=== PATIENT | female | born 1965 | race Caucasian/White ===

== ENCOUNTER 2019-04-06 06:59 | Day surgery (SDC) | payer BC ==
[~2019-04-06] VITALS: Ht 162.6 cm; Wt 67.1 kg
[~2019-04-06 06:59] MED LIST: D32000TA PO; LIDOCAINE 1% MDV 20ML VIAL SQ PRN
[2019-04-06] MEDS ORDERED: ACETAMINOPHEN 650 MG SUPP PR ONE (07:00)
[2019-04-06] MEDS ORDERED: LR 1,000 ML IV ONE (07:00)
[2019-04-06 07:33] LABS: HEMATOCRIT 42.1 % (36.0-47.0); HEMOGLOBIN 13.9 g/dl (12.0-15.5); MEAN CORPUSCULAR HEMOGLOBIN 30.9 pg (27.0-33.0); MEAN CORPUSCULAR VOLUME 93.6 fl (80.0-96.0); PLATELET COUNT, AUTOMATED 190 10^3/uL (150-450); WHITE BLOOD COUNT 4.7 10^3/uL (4.0-10.0)
[2019-04-06] MEDS ORDERED: OYST1TAB PO (08:04)
[2019-04-06] MEDS ORDERED: ONDANSETRON 4MG/2ML VIAL (J2405) As Ordered ONE (08:07)
[2019-04-06] MEDS ORDERED: LIDOCAINE 2% INJ 100 MG/5 ML SDV (FOR ANES.) As Ordered ONE (08:07)
[2019-04-06] MEDS ORDERED: dexameTHASONE 4 MG/ML 1ML VIAL (J1100) As Ordered ONE (08:07)
[2019-04-06] MEDS ORDERED: PROPOFOL 200 MG/20 ML VIAL As Ordered ONE (08:07)
[2019-04-06] MEDS ORDERED: fentaNYL 100 MCG/2 ML INJECTION (J3010) As Ordered ONE (08:08)
[2019-04-06] MEDS ORDERED: MIDAZOLAM INJ 2 MG/2 ML VIAL (J2250) As Ordered ONE (08:08)
[2019-04-06] MEDS ORDERED: ACETAMINOPHEN 650 MG SUPP As Ordered ONE (09:24)
[2019-04-06] MEDS ORDERED: ePHEDrine SULFATE 25 MG/5 ML(5MG/ML) SYRINGE As Ordered ONE (09:24)
[2019-04-06] MEDS ORDERED: fentaNYL 100 MCG/2 ML INJECTION (J3010) IV PRN (10:00)
[2019-04-06] MEDS ORDERED: PERCOCET 5MG/325MG TAB PO PRN (10:00)
[2019-04-06] MEDS ORDERED: LR 1,000 ML IV SCH (10:00)
[2019-04-06] MEDS ORDERED: oxyCODONE 5MG TAB PO PRN (10:00)
[2019-04-06] MEDS ORDERED: ONDANSETRON 4MG/2ML VIAL (J2405) IV PRN (10:00)
[2019-04-06 11:10] VITALS: BP 115/79
[2019-04-06] MEDS ORDERED: IBUPROFEN 800 MG TAB PO SCH (12:00)
--- NOTE | 2019-04-09 11:30 | RO ---
DATE OF PROCEDURE: 04/06/2019 Kaya is a 54-year-old female with postmenopausal bleeding and a thickened endometrium on ultrasound. After counseling, a decision was made to proceed with dilation and curettage (D and C), hysteroscopy. PREOPERATIVE DIAGNOSES: 1. Postmenopausal bleeding. 2. Thickened endometrium. POSTOPERATIVE DIAGNOSES: 1. Postmenopausal bleeding. 2. Thickened endometrium. PROCEDURE: 1. D and C. 2. Hysteroscopy. SURGEON: Dr. Ronald Mcgovern SCALP TREATMENT OPERATOR: ANESTHESIA: General. COMPLICATIONS: None. ESTIMATED BLOOD LOSS: Less than 10 mL. SPECIMEN SENT TO LAB: Endometrial curetting. DESCRIPTION OF PROCEDURE: After obtaining informed consent, the patient was taken to the operating room where general anesthetic was found to be adequate. She was then draped and prepped in the usual sterile fashion in dorsal lithotomy position. At this point, a straight cath of the bladder was performed for approximately 80 mL of clear urine. We then placed a weighted speculum on the posterior fornix of the vagina. Using a Pineda retractor, the anterior lip of the cervix was then grasped with a single-tooth tenaculum. The uterus was sounded to approximately 7 cm in size. The cervix was serially dilated and then the hysteroscope was inserted. The cavity was inspected with mild tubal ostia adhesions on the left side of the uterus. There was no evidence of any polyp or thickened endometrium. At this point, the hysteroscope was removed and a sharp curettage of the endometrial lining was done. The tissues were sent to pathology for final diagnosis. Good hemostasis noted. The patient tolerated the procedure well. She was then transferred to recovery room in stable condition.
== END 2019-04-06 11:20 | disposition home or self-care (01) ==
LOC: M SDC 06:59
PROVIDERS: ATTEND Obstetrics & Gynecology
DX: N95.0 Postmenopausal bleeding (principal); E04.1 Nontoxic single thyroid nodule; Z88.2 Allergy status to sulfonamides; Z88.8 Allergy status to other drugs, medicaments and biological substances; Z72.0 Tobacco use
CPT/HCPCS: 36415; 58558; 85027; 86850; 86900; 86901; 88305; J1100; J2250; J2405; J3010